=== PATIENT | male | born 1995 | race Caucasian/White ===

== ENCOUNTER 2018-12-23 18:28 | Emergency (ER) | payer OTHER ==
[~2018-12-23] VITALS: Ht 185.4 cm; Wt 79.4 kg
== END 2018-12-23 19:48 | disposition home or self-care (01) ==
LOC: ER 18:28
DX: S76.312A Strain of muscle, fascia and tendon of the posterior muscle group at thigh level, left thigh, initial encounter (principal); X50.3XXA Overexertion from repetitive movements, initial encounter; Y93.41 Activity, dancing; Y92.89 Other specified places as the place of occurrence of the external cause; Y99.8 Other external cause status